=== PATIENT | female | born 1990 | race Caucasian/White ===

== ENCOUNTER 2016-07-22 19:33 | Emergency (ER) | payer OTHER ==
[~2016-07-22] VITALS: Ht 172.7 cm; Wt 143.3 kg
[~2016-07-22 19:33] MED LIST: CLARITIN10 MG PO; DEPO-SUBQ104 MG/0.6 SQ; Feosol PO; IRON55 MG PO; K-Dur PO; MULTIVITAMIN1 EAC1 PO; Motrin PO; PRENATAL1 EACH PO
[2016-07-22] MEDS ORDERED: PREDNISONE20 MG PO (20:11)
[2016-07-22] MEDS ORDERED: KEFLEX500 MG PO (20:11)
[2016-07-22 20:29] VITALS: BP 131/84
== END 2016-07-22 20:32 | disposition home or self-care (01) ==
LOC: EME 19:33
DX: S50.361A Insect bite (nonvenomous) of right elbow, initial encounter (principal); L03.113 Cellulitis of right upper limb; W57.XXXA Bitten or stung by nonvenomous insect and other nonvenomous arthropods, initial encounter; J45.909 Unspecified asthma, uncomplicated; R73.03 Prediabetes
CPT/HCPCS: 99281; 99284; J0696; J7512

== ENCOUNTER 2017-01-08 14:02 | Emergency (ER) | payer OTHER ==
[~2017-01-08] VITALS: Ht 172.7 cm; Wt 145.1 kg
[~2017-01-08 14:02] MED LIST changes: +KEFLEX500 MG PO; +PREDNISONE20 MG PO
[2017-01-08 14:43] LABS: HEMATOCRIT 43.3 % (36.0-46.0); MCH 26.6 PG (29.0-34.0); MCHC 32.6 G/DL (30.0-36.0); MCV 81.5 FL (83-99); PLATELET COUNT 238 K/uL (156-360); RBC DIS.WIDTH-CV 12.1 % (11.8-14.6); RBC DIS.WIDTH-SD 35.9 % (39-53); RED BLOOD COUNT 5.31 M/uL (3.80-5.20); WHITE BLOOD COUNT 8.3 K/uL (4.1-10.2)
[2017-01-08 14:52] LABS: CHLORIDE 105 mEq/L (99-109); POTASSIUM 3.6 mEq/L (3.7-5.4); SODIUM 137 mEq/L (136-147)
[2017-01-08 14:54] LABS: GLUCOSE 123 mg/dL (70-99)
[2017-01-08 14:55] LABS: ANION GAP 8 MEQ/L (2-14)
[2017-01-08 14:56] LABS: TOTAL BILIRUBIN 0.2 mg/dL (0.0-1.0)
[2017-01-08 14:57] LABS: ALKALINE PHOSPHATASE 71 IU/L (3-129)
[2017-01-08 14:58] LABS: GFR ESTIMATE (CALCULATED) > 59 mL/min/
[2017-01-08 14:59] LABS: UREA NITROGEN (BUN) 13 mg/dL (9-23)
[2017-01-08 15:01] LABS: LIPASE 26 U/L (1.0-51.0)
[2017-01-08 15:08] LABS: QUANTITATIVE HCG < 4.0 MIU/ML
[2017-01-08 17:04] LABS: ADD MIUA? YES; BILIRUBIN NEGATIVE; BLOOD NEGATIVE; COLOR YELLOW ((YELLOW)); GLUCOSE (STRIP) NEGATIVE; KETONES NEGATIVE; LEUKOCYTES NEGATIVE; NITRITE NEGATIVE; PROTEIN (STRIP) NEGATIVE; SPECIFIC GRAVITY 1.043 (1.000-1.030); UROBILINOGEN 0.2 MG/DL (0.2-1.0)
[2017-01-08 17:16] LABS: BACTERIA RARE /HPF; EPITHELIAL CELLS 2+ /HPF; MUCUS TRACE /LPF; RED BLOOD CELLS 0-5 /HPF (0-5); UCUL ADDED? NO; WHITE BLOOD CELLS 0-5 /HPF (0-5)
[2017-01-08 18:02] VITALS: BP 135/79
== END 2017-01-08 18:03 | disposition home or self-care (01) ==
LOC: EME 14:02
DX: R10.11 Right upper quadrant pain (principal); R10.13 Epigastric pain; K76.0 Fatty (change of) liver, not elsewhere classified; R73.9 Hyperglycemia, unspecified; R73.03 Prediabetes; J45.909 Unspecified asthma, uncomplicated
CPT/HCPCS: 74177; 80053; 81003; 83690; 84702; 85027; 99281; 99284; J7030

== ENCOUNTER 2017-10-18 01:08 | Emergency (ER) | payer OTHER ==
[~2017-10-18] VITALS: Ht 170.2 cm; Wt 144.8 kg
[2017-10-18 01:29] LABS: HEMATOCRIT 41.8 % (36.0-46.0); HEMOGLOBIN 14.2 G/DL (11.9-15.5); MCH 28.5 PG (29.0-34.0); MCV 83.9 FL (83-99); PLATELET COUNT 213 K/uL (156-360); RBC DIS.WIDTH-CV 13.2 % (11.8-14.6); RBC DIS.WIDTH-SD 40.1 % (39-53); RED BLOOD COUNT 4.98 M/uL (3.80-5.20); WHITE BLOOD COUNT 9.9 K/uL (4.1-10.2)
[2017-10-18 01:39] LABS: CHLORIDE 105 mEq/L (99-109); POTASSIUM 3.6 mEq/L (3.7-5.4); SODIUM 137 mEq/L (136-147)
[2017-10-18 01:41] LABS: APPEARANCE CLOUDY ((CLEAR)); BILIRUBIN NEGATIVE; BLOOD NEGATIVE; COLOR YELLOW ((YELLOW)); GLUCOSE (STRIP) NEGATIVE; KETONES NEGATIVE; LEUKOCYTES LARGE; NITRITE NEGATIVE; PROTEIN (STRIP) NEGATIVE; SPECIFIC GRAVITY 1.011 (1.000-1.030); UROBILINOGEN 0.2 MG/DL (0.2-1.0)
[2017-10-18 01:42] LABS: GLUCOSE 108 mg/dL (70-99); TOTAL PROTEIN 6.9 g/dL (6.4-8.3)
[2017-10-18 01:44] LABS: TOTAL BILIRUBIN 0.4 mg/dL (0.0-1.0)
[2017-10-18 01:45] LABS: ALKALINE PHOSPHATASE 51 IU/L (3-129); CREATININE 0.7 mg/dL (0.6-1.3); GFR ESTIMATE (CALCULATED) > 59 mL/min/
[2017-10-18 01:46] LABS: UREA NITROGEN (BUN) 8 mg/dL (9-23)
[2017-10-18 01:47] LABS: AST (GOT) 21 IU/L (2-34)
[2017-10-18 01:48] LABS: ALT (GPT) 34 IU/L (3-49)
[2017-10-18 01:52] LABS: BACTERIA 1+ /HPF; EPITHELIAL CELLS 1+ /HPF; MUCUS TRACE /LPF; RED BLOOD CELLS NONE SEEN /HPF (0-5); UCUL ADDED? YES
[2017-10-18 02:13] LABS: QUANTITATIVE HCG 78802.3 MIU/ML
[2017-10-18] MEDS ORDERED: PROMETHAZINE HC25 M1 PO (04:10)
[2017-10-18] MEDS ORDERED: KEFLEX500 MG PO (04:10)
[2017-10-18 04:18] LABS: LIPASE 16 U/L (1.0-51.0)
[2017-10-18 04:23] VITALS: BP 99/64
== END 2017-10-18 04:25 | disposition home or self-care (01) ==
LOC: EME 01:08
DX: O23.11 Infections of bladder in pregnancy, first trimester (principal); Z3A.08 8 weeks gestation of pregnancy; O99.511 Diseases of the respiratory system complicating pregnancy, first trimester; J45.909 Unspecified asthma, uncomplicated; O99.89 Other specified diseases and conditions complicating pregnancy, childbirth and the puerperium; G43.909 Migraine, unspecified, not intractable, without status migrainosus; Z88.5 Allergy status to narcotic agent; Z88.8 Allergy status to other drugs, medicaments and biological substances; Z91.09 Other allergy status, other than to drugs and biological substances; Z91.011 Allergy to milk products
CPT/HCPCS: 76801; 80053; 81003; 83690; 84702; 85027; 87086; 99281; 99284; J7030; Q0169